=== PATIENT | female | born 1965 | race Caucasian/White ===

== ENCOUNTER 2017-08-15 08:49 | Emergency (ER) | payer SELFPAY ==
[2017-08-15] MEDS: IBUPROFEN 600 MG TAB PO (10:39)
== END 2017-08-15 11:48 | disposition home or self-care (01) ==
LOC: FTE 08:49
DX: M25.511 Pain in right shoulder (principal)
CPT/HCPCS: 72040; 73030-RT; 99284-25

== ENCOUNTER 2018-03-26 09:14 | Emergency (ER) | payer SELFPAY ==
[2018-03-26] MEDS: KETOROLAC 30 MG INJ IM (10:19)
[2018-03-26 10:24] LABS: ADD UMIC NO; UR ASCORBIC ACID NEGATIVE (NEGATIVE); UR BILIRUBIN (Dip) NEGATIVE (NEGATIVE); UR BLOOD (Dip) NEGATIVE (NEGATIVE); UR CLARITY CLEAR (CLEAR); UR COLOR YELLOW (YELLOW); UR GLUCOSE (Dip) NEGATIVE (NEGATIVE); UR KETONES (Dip) NEGATIVE (NEGATIVE); UR LEUKOCYTE ESTERASE (Dip) NEGATIVE Leu/ul (NEGATIVE); UR NITRITE (Dip) NEGATIVE (NEGATIVE); UR SPECIFIC GRAVITY (Dip) 1.017 (1.003-1.030); UR TOTAL PROTEIN (Dip) NEGATIVE (NEGATIVE); UR UROBILINOGEN (Dip) NEGATIVE (NEGATIVE)
== END 2018-03-26 10:49 | disposition home or self-care (01) ==
LOC: FTE 09:14
DX: M25.512 Pain in left shoulder (principal); M79.604 Pain in right leg; M79.605 Pain in left leg; M54.9 Dorsalgia, unspecified
CPT/HCPCS: 81003; 81025; 96372; 99284-25

== ENCOUNTER 2018-05-20 15:52 | Emergency (ER) | payer MEDICAID, OTHER | END 2018-05-20 16:26 | disposition home or self-care (01) | LOC: FTE 15:52 | DX: L03.116 Cellulitis of left lower limb (principal) | CPT/HCPCS: 99283; Z7502 ==

== ENCOUNTER 2018-07-01 09:13 | Emergency (ER) | payer MEDICAID ==
[2018-07-01] MEDS: KETOROLAC 60 MG INJ IM (10:14)
== END 2018-07-01 10:50 | disposition home or self-care (01) ==
LOC: FTE 09:13
DX: M19.90 Unspecified osteoarthritis, unspecified site (principal)
CPT/HCPCS: 81025; 96372; 99284-25

== ENCOUNTER 2018-08-09 13:03 | Emergency (ER) | payer MEDICAID ==
[2018-08-09] MEDS: KETOROLAC 30 MG INJ IM (13:50)
== END 2018-08-09 14:09 | disposition home or self-care (01) ==
LOC: FTE 13:03
DX: M79.18 Myalgia, other site (principal)
CPT/HCPCS: 96372; 99284-25

== ENCOUNTER 2018-08-15 23:26 | Emergency (ER) | payer MEDICAID ==
[2018-08-16] MEDS: SOD CHLORIDE 0.9% 1,000 ML IV (00:37)
[2018-08-16] MEDS: ACETAMINOPHEN 500 MG TAB PO (00:38)
[2018-08-16 00:40] LABS: ADD MAN DIFF? NO
[2018-08-16 00:41] LABS: BASOPHILS % 0.3 % (0.0-2.0); EOSINOPHILS # 0.1 10^3/ul (0.0-0.5); HEMATOCRIT 39.1 % (37.0-47.0); HEMOGLOBIN 12.4 g/dl (12.0-16.0); LYMPHOCYTES # 2.5 10^3/ul (0.8-2.9); MEAN CORPUSCULAR HEMOGLOBIN 25.2 pg (29.0-33.0); MEAN CORPUSCULAR HGB CONC 31.7 g/dl (32.0-37.0); MEAN CORPUSCULAR VOLUME 79.3 fl (82.0-101.0); MEAN PLATELET VOLUME 10.2 fl (7.4-10.4); MONOCYTE # 0.4 10^3/ul (0.3-0.9); MONOCYTES % 5.9 % (0.0-11.0); NEUTROPHIL # 3.6 10^3/ul (1.6-7.5); NEUTROPHILS % 54.6 % (39.0-77.0); PLATELET COUNT 186 10^3/UL (140-415); RED BLOOD COUNT 4.93 10^6/ul (4.20-5.40); RED CELL DISTRIBUTION WIDTH 13.9 % (11.5-14.5)
[2018-08-16 00:41] LABS: WHITE BLOOD COUNT 6.7 10^3/ul (4.8-10.8)
[2018-08-16 00:54] LABS: ANION GAP 7 (5-13); BLOOD UREA NITROGEN 8 mg/dl (7-20); CALCIUM 9.3 mg/dl (8.4-10.2); CARBON DIOXIDE 29 mmol/L (21-31); CHLORIDE 103 mmol/L (97-110); CREATININE 0.46 mg/dl (0.44-1.00); Estimated GFR > 60 mL/min (>60); GLUCOSE 164 mg/dl (70-220); POTASSIUM 3.9 mmol/L (3.5-5.1); SODIUM 139 mmol/L (135-144)
[2018-08-16 01:05] LABS: TROPONIN-I < 0.012 ng/ml (0.000-0.120)
== END 2018-08-16 03:07 | disposition home or self-care (01) ==
LOC: E/R 23:26
DX: R00.2 Palpitations (principal)
CPT/HCPCS: 36415; 70450; 80048; 84484; 85025; 93005; 99285-25

== ENCOUNTER 2018-08-17 19:21 | Emergency (ER) | payer MEDICAID ==
[2018-08-17] MEDS: KETOROLAC 30 MG INJ IM (21:41)
== END 2018-08-17 23:01 | disposition home or self-care (01) ==
LOC: FTE 19:21
DX: R51 Headache (principal)
CPT/HCPCS: 70450; 93005; 96372; 99285-25

== ENCOUNTER 2018-08-22 08:10 | Emergency (ER) | payer MEDICAID ==
[2018-08-22] MEDS: KETOROLAC 30 MG INJ IM (09:48)
== END 2018-08-22 09:59 | disposition home or self-care (01) ==
LOC: FTE 08:10
DX: R51 Headache (principal)
CPT/HCPCS: 96372; 99284-25

== ENCOUNTER 2018-09-19 18:50 | Emergency (ER) | payer MEDICAID ==
[2018-09-19 22:21] LABS: ADD MAN DIFF? NO
[2018-09-19 22:23] LABS: WHITE BLOOD COUNT 8.4 10^3/ul (4.8-10.8)
[2018-09-19 22:23] LABS: ADD UMIC YES; BASOPHILS % 0.2 % (0.0-2.0); EOSINOPHILS # 0.1 10^3/ul (0.0-0.5); EOSINOPHILS % 1.1 % (0.0-7.0); HEMOGLOBIN 11.5 g/dl (12.0-16.0); LYMPHOCYTES # 1.9 10^3/ul (0.8-2.9); LYMPHOCYTES % 22.5 % (15.0-51.0); MEAN CORPUSCULAR HEMOGLOBIN 25.5 pg (29.0-33.0); MEAN CORPUSCULAR HGB CONC 31.9 g/dl (32.0-37.0); MEAN CORPUSCULAR VOLUME 79.8 fl (82.0-101.0); MEAN PLATELET VOLUME 9.8 fl (7.4-10.4); MONOCYTE # 0.4 10^3/ul (0.3-0.9); MONOCYTES % 4.9 % (0.0-11.0); NEUTROPHILS % 70.8 % (39.0-77.0); PLATELET COUNT 203 10^3/UL (140-415); RED BLOOD COUNT 4.51 10^6/ul (4.20-5.40); RED CELL DISTRIBUTION WIDTH 14.5 % (11.5-14.5); UR ASCORBIC ACID 20 mg/dL (NEGATIVE); UR BACTERIA FEW /HPF (NONE SEEN); UR BILIRUBIN (Dip) NEGATIVE (NEGATIVE); UR BLOOD (Dip) NEGATIVE (NEGATIVE); UR CLARITY CLEAR (CLEAR); UR COLOR YELLOW (YELLOW); UR GLUCOSE (Dip) NEGATIVE (NEGATIVE); UR KETONES (Dip) NEGATIVE (NEGATIVE); UR LEUKOCYTE ESTERASE (Dip) TRACE Leu/ul (NEGATIVE); UR MUCUS FEW /HPF (NONE SEEN); UR NITRITE (Dip) NEGATIVE (NEGATIVE); UR RBC 1 /HPF (0-5); UR SPECIFIC GRAVITY (Dip) 1.018 (1.003-1.030); UR SQUAMOUS EPITHELIAL CELL FEW /HPF (FEW); UR TOTAL PROTEIN (Dip) NEGATIVE (NEGATIVE); UR UROBILINOGEN (Dip) NEGATIVE (NEGATIVE); UR WBC 7 /HPF (0-5)
[2018-09-19 22:43] LABS: ANION GAP 8 (5-13); BLOOD UREA NITROGEN 11 mg/dl (7-20); C-REACTIVE PROTEIN 1.1 mg/dl (0.0-0.9); CALCIUM 9.4 mg/dl (8.4-10.2); CARBON DIOXIDE 30 mmol/L (21-31); CHLORIDE 104 mmol/L (97-110); CREATININE 0.42 mg/dl (0.44-1.00); Estimated GFR > 60 mL/min (>60); GLUCOSE 210 mg/dl (70-220); POTASSIUM 3.6 mmol/L (3.5-5.1); SODIUM 142 mmol/L (135-144)
[2018-09-19 22:52] LABS: TROPONIN-I < 0.012 ng/ml (0.000-0.120)
[2018-09-19] MEDS: KETOROLAC 30 MG INJ IM (23:23)
[2018-09-19] MEDS: NITROFURANTOIN (SR) 100 MG CAP PO (23:23)
[2018-09-19 23:41] LABS: ERYTHROCYTE SEDIMENTATION RATE 11 mm/Hr (0-30)
== END 2018-09-20 00:40 | disposition home or self-care (01) ==
LOC: FTE 09-20 00:40
DX: D50.9 Iron deficiency anemia, unspecified (principal); N39.0 Urinary tract infection, site not specified; R06.02 Shortness of breath
CPT/HCPCS: 36415; 71046; 80048; 81001; 81025; 84484; 85025; 85651; 86140; 87400; 93005; 96372; 99285-25

== ENCOUNTER 2018-09-30 19:44 | Emergency (ER) | payer SELFPAY, OTHER, MEDICAID ==
[2018-10-01] MEDS: KETOROLAC 30 MG INJ IM (02:31)
== END 2018-10-01 03:07 | disposition home or self-care (01) ==
LOC: FTE 19:44
DX: R51 Headache (principal)
CPT/HCPCS: 96372; 99284-25; J1885

== ENCOUNTER 2018-10-10 09:04 | Emergency (ER) | payer MEDICAID ==
[2018-10-10 12:13] LABS: WHITE BLOOD COUNT 6.4 10^3/ul (4.8-10.8)
[2018-10-10 12:13] LABS: ADD MAN DIFF? NO; BASOPHILS % 0.3 % (0.0-2.0); EOSINOPHILS # 0.1 10^3/ul (0.0-0.5); EOSINOPHILS % 1.6 % (0.0-7.0); LYMPHOCYTES # 1.8 10^3/ul (0.8-2.9); LYMPHOCYTES % 28.5 % (15.0-51.0); MEAN CORPUSCULAR HEMOGLOBIN 26.1 pg (29.0-33.0); MEAN CORPUSCULAR HGB CONC 31.6 g/dl (32.0-37.0); MEAN CORPUSCULAR VOLUME 82.6 fl (82.0-101.0); MEAN PLATELET VOLUME 10.2 fl (7.4-10.4); MONOCYTE # 0.4 10^3/ul (0.3-0.9); MONOCYTES % 5.5 % (0.0-11.0); NEUTROPHIL # 4.1 10^3/ul (1.6-7.5); NEUTROPHILS % 63.9 % (39.0-77.0); PLATELET COUNT 194 10^3/UL (140-415); RED CELL DISTRIBUTION WIDTH 14.6 % (11.5-14.5)
[2018-10-10 12:29] LABS: ADD UMIC NO; UR ASCORBIC ACID 40 mg/dL (NEGATIVE); UR BILIRUBIN (Dip) NEGATIVE (NEGATIVE); UR BLOOD (Dip) NEGATIVE (NEGATIVE); UR CLARITY CLEAR (CLEAR); UR COLOR STRAW (YELLOW); UR GLUCOSE (Dip) NEGATIVE (NEGATIVE); UR KETONES (Dip) NEGATIVE (NEGATIVE); UR LEUKOCYTE ESTERASE (Dip) NEGATIVE Leu/ul (NEGATIVE); UR NITRITE (Dip) NEGATIVE (NEGATIVE); UR TOTAL PROTEIN (Dip) NEGATIVE (NEGATIVE); UR UROBILINOGEN (Dip) NEGATIVE (NEGATIVE)
[2018-10-10 12:37] LABS: ANION GAP 11 (5-13); BLOOD UREA NITROGEN 12 mg/dl (7-20); CALCIUM 9.6 mg/dl (8.4-10.2); CARBON DIOXIDE 30 mmol/L (21-31); CHLORIDE 103 mmol/L (97-110); CREATINE KINASE 47 IU/L (23-200); Estimated GFR > 60 mL/min (>60); GLUCOSE 161 mg/dl (70-220); POTASSIUM 4.3 mmol/L (3.5-5.1); SODIUM 144 mmol/L (135-144)
[2018-10-10 12:49] LABS: CK INDEX 1.2; CK-MB 0.56 ng/ml (0.0-2.4); TROPONIN-I < 0.012 ng/ml (0.000-0.120)
== END 2018-10-10 14:34 | disposition home or self-care (01) ==
LOC: FTE 09:04
DX: M79.10 Myalgia, unspecified site (principal); R00.2 Palpitations
CPT/HCPCS: 36415; 71045; 80048; 81003; 82550; 82553; 84484; 85025; 93005; 99285-25